=== PATIENT | female | born 1955 | race Caucasian/White ===

== ENCOUNTER 2019-10-24 09:30 | Inpatient (IN) | payer SELFPAY ==
[~2019-10-24] VITALS: Ht 160 cm; Wt 77.4 kg
[~2019-10-24 09:30] MED LIST: AMLO10TA8 PO; ASPI-496 PO; ASPI-650 PO; BACL-19 PO; CHOL200040 PO; DOCU-131 PO; GABA300C10 PO; LISI-167 PO; METH4TAB PO; MULTIVITAMIN; OXYC5TAB3 PO; STOOL SOFTENER
--- NOTE | 2019-10-24 10:01 | NUR ---
REPORT FROM MERON BRANNON RUST PERFORMED- 0 STRAIGHT CATH UA OBTAINED-SENT TO LAB
--- NOTE | 2019-10-24 10:07 | NUR ---
GENERALIZED WEAKNESS FOR TWO DAYS. FELL TWICE GETTING OUT OF BED TRYING TO GET INTO WHEELCHAIR INCLUDING THIS MORNING. STATES WEAK LEGS. ROOM AIR POX 87%, DEMINISHED TO BASES LIPS/TONGUE VERY DRY PROVIDER TO BEDSIDE
[2019-10-24 10:27] LABS: MICROSCOPIC AUTO
--- NOTE | 2019-10-24 10:40 | NUR ---
COVID SWAB SENT PASSED SWALLOW EXAM RE-CHECKED ROOM AIR SAT:87-88% ON ROOM AIR
[2019-10-24] MEDS ORDERED: CEFTRIAXONE PMX 1GM/50ML 50 ML ONE (10:59)
[2019-10-24] MEDS ORDERED: SODIUM CHLORIDE 0.9% 1,000ML IVBOLUS ONE (11:00)
[2019-10-24] MEDS ORDERED: CEFTRIAXONE PMX 1GM/50ML 50 ML IV ONE (11:00)
--- NOTE | 2019-10-24 11:00 | NUR ---
LAB AT BEDSIDE CULTURES OBTAINED MOVED TO HOSPITAL BED DIET ORDERED
[2019-10-24 11:10] LABS: BASOPHILS # (AUTO) 0.06 x10^3/uL (0-0.1); BASOPHILS % (AUTO) 1 % (0-1); EOSINOPHILS # (AUTO) 0.02 x10^3/uL (0-0.4); EOSINOPHILS % (AUTO) 0 % (1-7); LYMPHOCYTES # (AUTO) 1.23 x10^3/uL (1-3.4); LYMPHOCYTES % (AUTO) 14 % (22-44); MD NO; MEAN CORPUSCULAR HEMOGLOBIN 28.2 pg (27.0-34.8); MEAN CORPUSCULAR HGB CONC 32.3 g/dL (32.4-35.8); MEAN CORPUSCULAR VOLUME 87.2 fL (80-100); MEAN PLATELET VOLUME 10.4 fL (7.4-10.4); MONOCYTES # (AUTO) 0.51 x10^3/uL (0.2-0.8); MONOCYTES % (AUTO) 6 % (2-9); NEUTROPHILS # (AUTO) 7.19 x10^3/uL (1.8-6.8); NEUTROPHILS % (AUTO) 80 % (42-75); PLATELET COUNT 247 x10^3/uL (130-400); RED BLOOD COUNT 4.63 x10^6/uL (3.82-5.3); RED CELL DISTRIBUTION WIDTH 14.5 % (9.6-15.2)
--- NOTE | 2019-10-24 11:16 | NUR ---
MEDICATED PER EMAR- IV ABX REPORT TO COBY BRANNON
[2019-10-24 11:23] LABS: ALANINE AMINOTRANSFERASE 16 U/L (12-78); ALBUMIN 3.2 g/dL (3.4-5.0); ANION GAP 4 mmol/L (5-15); CALCIUM 10.2 mg/dL (8.5-10.1); CHLORIDE 111 mmol/L (98-107); CREATININE 2.65 mg/dL (0.55-1.02)
--- NOTE | 2019-10-24 11:24 | NUR ---
ABX INFUSION COMPLETE PERIWICK PLACED
[2019-10-24 11:27] LABS: ALKALINE PHOSPHATASE 109 U/L (45-117); BILIRUBIN,TOTAL 0.3 mg/dL (0.2-1.0); TOTAL PROTEIN 8.7 g/dL (6.4-8.2); TROPONIN I < 0.015 ng/mL (0.000-0.045)
--- NOTE | 2019-10-24 12:00 | NUR ---
Care of patient assumed.
[2019-10-24] MEDS: SODIUM CHLORIDE 0.9% 1,000 ML IV SCH (12:23)
[2019-10-24] MEDS ORDERED: hydrALAzine 20 MG/ML, 1ML IVPush PRN (12:30)
[2019-10-24] MEDS ORDERED: ONDANSETRON 2MG/ML, 2ML IVPush PRN (12:30)
--- NOTE | 2019-10-24 13:00 | NUR ---
Lunch tray to patient, patient aox4, call light with in reach.
--- NOTE | 2019-10-24 14:00 | NUR ---
Pt to ultrasound.
--- NOTE | 2019-10-24 15:24 | NUR ---
Patient sleeping / resting in hospital bed. Awaiting inpatient bed for admission. Vital signs stable. Will continue to monitor
[2019-10-24] MEDS ORDERED: OXYcodone/APAP 5/325MG TABLET ONE (16:05)
[2019-10-24] MEDS: OXYcodone/APAP 5/325MG TABLET PO PRN (16:10)
--- NOTE | 2019-10-24 16:30 | NUR ---
Dinner tray delivered. Pt medicated per mar for pain. call light with inreach.
[2019-10-24 21:40] VITALS: BP 114/65
[2019-10-24] MEDS: FAMOTIDINE 20 MG TABLET PO SCH (21:45)
[2019-10-25 02:37] VITALS: BP 126/74
[2019-10-25] MEDS ORDERED: SODIUM CHLORIDE 0.9% 1,000ML IVBOLUS ONE (05:30)
[2019-10-25 05:50] LABS: CHLORIDE 111 mmol/L (98-107)
[2019-10-25 05:56] LABS: BASOPHILS # (AUTO) 0.04 x10^3/uL (0-0.1); BASOPHILS % (AUTO) 1 % (0-1); EOSINOPHILS # (AUTO) 0.21 x10^3/uL (0-0.4); EOSINOPHILS % (AUTO) 3 % (1-7); LYMPHOCYTES # (AUTO) 1.68 x10^3/uL (1-3.4); LYMPHOCYTES % (AUTO) 24 % (22-44); MD NO; MEAN CORPUSCULAR HGB CONC 32.2 g/dL (32.4-35.8); MEAN PLATELET VOLUME 10.7 fL (7.4-10.4); MONOCYTES % (AUTO) 10 % (2-9); NEUTROPHILS # (AUTO) 4.48 x10^3/uL (1.8-6.8); NEUTROPHILS % (AUTO) 63 % (42-75); PLATELET COUNT 199 x10^3/uL (130-400); RED BLOOD COUNT 4.01 x10^6/uL (3.82-5.3); RED CELL DISTRIBUTION WIDTH 15.4 % (9.6-15.2)
[2019-10-25 06:15] LABS: ALANINE AMINOTRANSFERASE 17 U/L (12-78); ALBUMIN 2.7 g/dL (3.4-5.0); ALKALINE PHOSPHATASE 89 U/L (45-117); ANION GAP 8 mmol/L (5-15); BILIRUBIN,TOTAL 0.3 mg/dL (0.2-1.0); CALCIUM 9.1 mg/dL (8.5-10.1); CREATININE 2.41 mg/dL (0.55-1.02); TOTAL PROTEIN 7.4 g/dL (6.4-8.2)
[2019-10-25] MEDS: SODIUM CHLORIDE 0.9% 1,000 ML IV SCH ×2 (07:16→15:03)
[2019-10-25 08:00] VITALS: BP 87/56
[2019-10-25 08:10] LABS: C-REACTIVE PROTEIN, QUANT 8.1 mg/dL (0.02-0.49)
[2019-10-25] MEDS: FAMOTIDINE 20 MG TABLET PO SCH (08:25)
[2019-10-25] MEDS: SENNA/DOCUSATE TABLET PO SCH (08:25)
[2019-10-25] MEDS ORDERED: COSYNTROPIN 0.25 MG IV ONE (11:30)
[2019-10-25] MEDS: LIDODERM 5% PATCH TD SCH (12:09)
[2019-10-25] MEDS: CEFTRIAXONE PMX 2GM/50ML 50 ML IV SCH (13:27)
[2019-10-25 13:33] VITALS: BP 101/66
[2019-10-25 22:18] VITALS: BP 119/78
[2019-10-26 01:08] VITALS: BP 134/87
[2019-10-26 04:01] VITALS: BP 130/77
[2019-10-26] MEDS: OXYcodone/APAP 5/325MG TABLET PO PRN (04:08)
[2019-10-26] MEDS: SODIUM CHLORIDE 0.9% 1,000 ML IV SCH (05:40)
[2019-10-26 06:00] LABS: BASOPHILS # (AUTO) 0.07 x10^3/uL (0-0.1); BASOPHILS % (AUTO) 1 % (0-1); EOSINOPHILS % (AUTO) 5 % (1-7); LYMPHOCYTES # (AUTO) 1.77 x10^3/uL (1-3.4); LYMPHOCYTES % (AUTO) 31 % (22-44); MD NO; MEAN CORPUSCULAR HEMOGLOBIN 28.2 pg (27.0-34.8); MEAN CORPUSCULAR HGB CONC 32.4 g/dL (32.4-35.8); MEAN PLATELET VOLUME 10.4 fL (7.4-10.4); MONOCYTES % (AUTO) 9 % (2-9); NEUTROPHILS # (AUTO) 3.06 x10^3/uL (1.8-6.8); NEUTROPHILS % (AUTO) 54 % (42-75); PLATELET COUNT 199 x10^3/uL (130-400); RED BLOOD COUNT 3.74 x10^6/uL (3.82-5.3); RED CELL DISTRIBUTION WIDTH 14.4 % (9.6-15.2)
[2019-10-26 06:12] LABS: ANION GAP 4 mmol/L (5-15); CALCIUM 8.9 mg/dL (8.5-10.1); CHLORIDE 115 mmol/L (98-107); CREATININE 1.55 mg/dL (0.55-1.02)
[2019-10-26] MEDS: SENNA/DOCUSATE TABLET PO SCH (09:57)
[2019-10-26] MEDS: FAMOTIDINE 20 MG TABLET PO SCH (09:57)
[2019-10-26] MEDS: LIDODERM 5% PATCH TD SCH (10:01)
[2019-10-26 10:07] VITALS: BP 115/74
[2019-10-26] MEDS: CEFTRIAXONE PMX 2GM/50ML 50 ML IV SCH (13:30)
[2019-10-26 13:33] VITALS: BP 117/77
[2019-10-26 15:08] LABS: MEAN CORPUSCULAR HEMOGLOBIN 27.8 pg (27.0-34.8); MEAN CORPUSCULAR HGB CONC 31.8 g/dL (32.4-35.8); MEAN CORPUSCULAR VOLUME 87.4 fL (80-100); MEAN PLATELET VOLUME 10.1 fL (7.4-10.4); PLATELET COUNT 213 x10^3/uL (130-400); RED BLOOD COUNT 3.95 x10^6/uL (3.82-5.3); RED CELL DISTRIBUTION WIDTH 14.3 % (9.6-15.2)
[2019-10-26 15:36] LABS: BASOPHILS # (AUTO) 0.06 x10^3/uL (0-0.1); BASOPHILS % (AUTO) 1 % (0-1); EOSINOPHILS # (AUTO) 0.31 x10^3/uL (0-0.4); EOSINOPHILS % (AUTO) 6 % (1-7); LYMPHOCYTES # (AUTO) 1.78 x10^3/uL (1-3.4); LYMPHOCYTES % (AUTO) 32 % (22-44); MD SCAN; MONOCYTES % (AUTO) 9 % (2-9); NEUTROPHILS # (AUTO) 2.83 x10^3/uL (1.8-6.8); NEUTROPHILS % (AUTO) 52 % (42-75)
[2019-10-26] MEDS: HEPARIN 5,000 UNITS/ML, 1ML SQ SCH ×2 (17:34→22:50)
[2019-10-26 19:59] VITALS: BP 155/96
[2019-10-27 00:55] VITALS: BP 147/94
[2019-10-27 06:29] LABS: ANION GAP 8 mmol/L (5-15); CALCIUM 9.2 mg/dL (8.5-10.1); CHLORIDE 110 mmol/L (98-107)
[2019-10-27 06:31] LABS: CREATININE 1.44 mg/dL (0.55-1.02)
[2019-10-27 07:30] VITALS: BP 151/104
[2019-10-27 08:08] VITALS: BP 130/88
[2019-10-27] MEDS: SENNA/DOCUSATE TABLET PO SCH (08:19)
[2019-10-27] MEDS: FAMOTIDINE 20 MG TABLET PO SCH (08:19)
[2019-10-27] MEDS: HEPARIN 5,000 UNITS/ML, 1ML SQ SCH ×2 (08:20→16:31)
[2019-10-27] MEDS: LIDODERM 5% PATCH TD SCH (12:27)
[2019-10-27] MEDS: CEFTRIAXONE PMX 2GM/50ML 50 ML IV SCH (12:28)
[2019-10-27 14:57] VITALS: BP 133/86
[2019-10-27 18:53] VITALS: BP 122/87
[2019-10-27 22:31] LABS: OCCULT BLOOD NEGATIVE (NEGATIVE)
[2019-10-28] MEDS: HEPARIN 5,000 UNITS/ML, 1ML SQ SCH ×3 (00:29→16:39)
[2019-10-28] MEDS ORDERED: LIDODERM REMOVE PATCH NOTE XX ONE (00:30)
[2019-10-28 00:35] VITALS: BP 134/94
[2019-10-28] MEDS: SENNA/DOCUSATE TABLET PO SCH (08:56)
[2019-10-28] MEDS: FAMOTIDINE 20 MG TABLET PO SCH (08:56)
[2019-10-28 08:58] VITALS: BP 126/87
[2019-10-28] MEDS: LIDODERM 5% PATCH TD SCH (10:33)
[2019-10-28] MEDS: CEFTRIAXONE PMX 2GM/50ML 50 ML IV SCH (13:17)
[2019-10-28 15:28] VITALS: BP 150/106
[2019-10-28 19:08] VITALS: BP 136/90
[2019-10-29 02:25] VITALS: BP 127/92
[2019-10-29] MEDS: OXYcodone/APAP 5/325MG TABLET PO PRN ×2 (04:52→23:06)
[2019-10-29] MEDS: HEPARIN 5,000 UNITS/ML, 1ML SQ SCH ×3 (04:52→20:10)
[2019-10-29 07:11] VITALS: BP 111/81
[2019-10-29] MEDS: SENNA/DOCUSATE TABLET PO SCH (08:50)
[2019-10-29] MEDS: LIDODERM 5% PATCH TD SCH (08:51)
[2019-10-29] MEDS: CEFDINIR 300 MG CAPSULE PO SCH ×2 (08:53→20:10)
[2019-10-29] MEDS: FAMOTIDINE 20 MG TABLET PO SCH (08:53)
[2019-10-29 13:18] VITALS: BP 134/87
[2019-10-29 19:43] VITALS: BP 129/86
[2019-10-30 01:50] VITALS: BP 104/75
[2019-10-30] MEDS: HEPARIN 5,000 UNITS/ML, 1ML SQ SCH ×3 (06:00→21:34)
[2019-10-30 07:43] VITALS: BP 126/82
[2019-10-30] MEDS: CEFDINIR 300 MG CAPSULE PO SCH ×2 (08:35→21:34)
[2019-10-30] MEDS: LIDODERM 5% PATCH TD SCH (08:37)
[2019-10-30] MEDS: SENNA/DOCUSATE TABLET PO SCH (08:37)
[2019-10-30] MEDS: FAMOTIDINE 20 MG TABLET PO SCH (08:39)
[2019-10-30] MEDS ORDERED: CEFD300C37 PO (10:27)
[2019-10-30 13:44] VITALS: BP 118/87
[2019-10-30] MEDS: METHOCARBAMOL 500 MG TABLET PO PRN (15:14)
[2019-10-30 18:54] VITALS: BP 123/85
[2019-10-31 01:22] VITALS: BP 138/93
[2019-10-31] MEDS: HEPARIN 5,000 UNITS/ML, 1ML SQ SCH (06:30)
[2019-10-31 07:46] VITALS: BP 119/78
[2019-10-31] MEDS: ENOXAPARIN 40 MG/0.4 ML SQ SCH (09:11)
[2019-10-31] MEDS: FAMOTIDINE 20 MG TABLET PO SCH (09:12)
[2019-10-31] MEDS: SENNA/DOCUSATE TABLET PO SCH (09:12)
[2019-10-31] MEDS: LIDODERM 5% PATCH TD SCH (09:12)
[2019-10-31] MEDS: CEFDINIR 300 MG CAPSULE PO SCH ×2 (09:12→22:24)
[2019-10-31 09:23] LABS: HCT (SEDRATE) 39.9 % (34.6-47.8)
[2019-10-31 09:40] LABS: C-REACTIVE PROTEIN, QUANT 8.5 mg/dL (0.02-0.49)
[2019-10-31 13:26] VITALS: BP 111/71
[2019-10-31] MEDS ORDERED: OMNIPAQUE 350 MG/ML, 100ML BOTTLE ONE (16:12)
[2019-10-31 22:28] VITALS: BP 132/83
[2019-11-01 00:32] VITALS: BP 121/81
[2019-11-01 07:29] VITALS: BP 127/85
[2019-11-01] MEDS ORDERED: FAMOTIDINE 40 MG TABLET ONE (08:22)
[2019-11-01] MEDS: FAMOTIDINE 20 MG TABLET PO SCH ×2 (08:30→08:35)
[2019-11-01] MEDS: CEFDINIR 300 MG CAPSULE PO SCH ×2 (08:30→21:36)
[2019-11-01] MEDS: ENOXAPARIN 40 MG/0.4 ML SQ SCH (08:31)
[2019-11-01] MEDS: SENNA/DOCUSATE TABLET PO SCH ×2 (08:31→08:36)
[2019-11-01] MEDS: LIDODERM 5% PATCH TD SCH (08:32)
[2019-11-01] MEDS ORDERED: GADOTERATE 7.5 MMOL/15 ML SYR ONE (10:32)
[2019-11-01 13:54] VITALS: BP 122/86
[2019-11-01 19:13] VITALS: BP 138/92
[2019-11-01] MEDS: ACETAMINOPHEN 325 MG TABLET PO PRN (21:36)
[2019-11-02 00:57] VITALS: BP 113/79
[2019-11-02 08:36] VITALS: BP 133/85
[2019-11-02] MEDS: FAMOTIDINE 20 MG TABLET PO SCH (09:00)
[2019-11-02] MEDS ORDERED: FAMOTIDINE 40 MG TABLET ONE (09:09)
[2019-11-02] MEDS: ENOXAPARIN 40 MG/0.4 ML SQ SCH (09:17)
[2019-11-02] MEDS ORDERED: FAMOTIDINE 10 MG TAB PO SCH (09:17)
[2019-11-02] MEDS: CEFDINIR 300 MG CAPSULE PO SCH ×2 (09:18→21:31)
[2019-11-02] MEDS: SENNA/DOCUSATE TABLET PO SCH (09:18)
[2019-11-02] MEDS: LIDODERM 5% PATCH TD SCH (09:20)
[2019-11-02] MEDS: FAMOTIDINE 10 MG TAB PO SCH (09:32)
[2019-11-02 12:44] VITALS: BP 128/87
[2019-11-02 19:00] VITALS: BP 133/95
[2019-11-02] MEDS: ACETAMINOPHEN 325 MG TABLET PO PRN (21:31)
[2019-11-02] MEDS: METHOCARBAMOL 500 MG TABLET PO PRN (21:35)
[2019-11-03 01:48] VITALS: BP 123/88
[2019-11-03] MEDS: ACETAMINOPHEN 325 MG TABLET PO PRN ×2 (04:10→13:05)
[2019-11-03 06:42] VITALS: BP 110/80
[2019-11-03] MEDS: SENNA/DOCUSATE TABLET PO SCH (09:53)
[2019-11-03] MEDS: CEFDINIR 300 MG CAPSULE PO SCH ×2 (09:53→21:36)
[2019-11-03] MEDS: FAMOTIDINE 10 MG TAB PO SCH (09:53)
[2019-11-03] MEDS: LIDODERM 5% PATCH TD SCH (09:54)
[2019-11-03] MEDS: ENOXAPARIN 40 MG/0.4 ML SQ SCH (09:56)
[2019-11-03] MEDS ORDERED: POLYETHYLENE GLYCOL 17 GM PACKET NG ONE (13:00)
[2019-11-03 13:29] VITALS: BP 117/83
[2019-11-03 21:18] VITALS: BP 127/87
[2019-11-03] MEDS: MAGNESIUM HYDROXIDE 8%, 30ML UDC PO SCH (21:36)
[2019-11-03] MEDS: DOCUSATE 100 MG CAPSULE PO SCH (21:36)
[2019-11-03] MEDS ORDERED: POLYETHYLENE GLYCOL 17 GM PACKET ONE (22:21)
[2019-11-04 01:14] VITALS: BP 129/82
[2019-11-04 07:57] VITALS: BP 126/83
[2019-11-04] MEDS: DOCUSATE 100 MG CAPSULE PO SCH ×2 (09:00→20:19)
[2019-11-04] MEDS: FAMOTIDINE 10 MG TAB PO SCH (09:01)
[2019-11-04] MEDS: LIDODERM 5% PATCH TD SCH (09:01)
[2019-11-04] MEDS: ENOXAPARIN 40 MG/0.4 ML SQ SCH (09:02)
[2019-11-04] MEDS: ACETAMINOPHEN 325 MG TABLET PO PRN ×3 (09:02→19:44)
[2019-11-04 14:00] VITALS: BP 123/69
[2019-11-04 20:16] VITALS: BP 142/94
[2019-11-04] MEDS: MAGNESIUM HYDROXIDE 8%, 30ML UDC PO SCH (20:20)
[2019-11-05 01:28] VITALS: BP 119/82
[2019-11-05] MEDS: ACETAMINOPHEN 325 MG TABLET PO PRN ×2 (01:47→19:35)
[2019-11-05 06:03] LABS: CREATININE 1.74 mg/dL (0.55-1.02)
[2019-11-05 08:13] VITALS: BP 117/80
[2019-11-05] MEDS: LIDODERM 5% PATCH TD SCH (09:09)
[2019-11-05] MEDS: DOCUSATE 100 MG CAPSULE PO SCH ×2 (09:10→20:17)
[2019-11-05] MEDS: FAMOTIDINE 10 MG TAB PO SCH (09:10)
[2019-11-05] MEDS: ENOXAPARIN 40 MG/0.4 ML SQ SCH (09:11)
[2019-11-05 12:52] VITALS: BP 129/92
[2019-11-05 19:16] VITALS: BP 124/85
[2019-11-05] MEDS: MAGNESIUM HYDROXIDE 8%, 30ML UDC PO SCH (20:16)
[2019-11-06 00:52] VITALS: BP 121/85
[2019-11-06] MEDS: ACETAMINOPHEN 325 MG TABLET PO PRN ×3 (01:13→20:42)
[2019-11-06] MEDS: METHOCARBAMOL 500 MG TABLET PO PRN (01:13)
[2019-11-06 06:30] VITALS: BP 114/77
[2019-11-06] MEDS: ENOXAPARIN 30 MG/0.3 ML SQ SCH (08:49)
[2019-11-06] MEDS: DOCUSATE 100 MG CAPSULE PO SCH ×2 (08:49→20:43)
[2019-11-06] MEDS: LIDODERM 5% PATCH TD SCH (08:50)
[2019-11-06] MEDS: FAMOTIDINE 10 MG TAB PO SCH (09:00)
[2019-11-06 13:13] VITALS: BP 146/99
[2019-11-06] MEDS: CYCLOBENZAPRINE 10 MG TABLET PO SCH ×2 (16:06→20:42)
[2019-11-06 18:41] VITALS: BP 108/75
[2019-11-06] MEDS: MAGNESIUM HYDROXIDE 8%, 30ML UDC PO SCH (20:43)
[2019-11-07 00:54] VITALS: BP 106/72
[2019-11-07 05:59] LABS: HCT (SEDRATE) 38.9 % (34.6-47.8)
[2019-11-07 06:17] LABS: CHLORIDE 110 mmol/L (98-107)
[2019-11-07 06:30] LABS: ALANINE AMINOTRANSFERASE 31 U/L (12-78); ALBUMIN 3.3 g/dL (3.4-5.0); ALKALINE PHOSPHATASE 100 U/L (45-117); ANION GAP 9 mmol/L (5-15); BILIRUBIN,TOTAL 0.5 mg/dL (0.2-1.0); CREATININE 1.96 mg/dL (0.55-1.02); TOTAL PROTEIN 8.2 g/dL (6.4-8.2)
[2019-11-07 06:59] VITALS: BP 104/68
[2019-11-07] MEDS: FAMOTIDINE 20 MG TABLET PO SCH (07:59)
[2019-11-07] MEDS: CYCLOBENZAPRINE 10 MG TABLET PO SCH ×3 (07:59→21:11)
[2019-11-07] MEDS: DOCUSATE 100 MG CAPSULE PO SCH ×2 (07:59→21:11)
[2019-11-07] MEDS: LIDODERM 5% PATCH TD SCH (08:00)
[2019-11-07] MEDS: ENOXAPARIN 30 MG/0.3 ML SQ SCH (08:01)
[2019-11-07 12:13] VITALS: BP 96/65
[2019-11-07 13:04] VITALS: BP 130/82
[2019-11-07] MEDS: GABAPENTIN 100 MG CAPSULE PO SCH ×3 (13:07→21:11)
[2019-11-07 19:40] VITALS: BP 117/85
[2019-11-07] MEDS: MAGNESIUM HYDROXIDE 8%, 30ML UDC PO SCH (21:11)
[2019-11-08 01:27] VITALS: BP 100/71
[2019-11-08 06:22] VITALS: BP 106/75
[2019-11-08] MEDS: DOCUSATE 100 MG CAPSULE PO SCH ×2 (08:19→21:01)
[2019-11-08] MEDS: FAMOTIDINE 20 MG TABLET PO SCH (08:19)
[2019-11-08] MEDS: ENOXAPARIN 30 MG/0.3 ML SQ SCH (08:19)
[2019-11-08] MEDS: CYCLOBENZAPRINE 10 MG TABLET PO SCH ×3 (08:20→21:01)
[2019-11-08] MEDS: GABAPENTIN 100 MG CAPSULE PO SCH ×3 (08:20→21:01)
[2019-11-08] MEDS: LIDODERM 5% PATCH TD SCH (10:15)
[2019-11-08 13:59] VITALS: BP 130/92
[2019-11-08 19:37] VITALS: BP 111/7
[2019-11-08] MEDS: MAGNESIUM HYDROXIDE 8%, 30ML UDC PO SCH (21:01)
[2019-11-09 01:50] VITALS: BP 105/73
[2019-11-09 07:37] VITALS: BP 112/82
[2019-11-09] MEDS: DOCUSATE 100 MG CAPSULE PO SCH ×2 (08:08→22:00)
[2019-11-09] MEDS: GABAPENTIN 100 MG CAPSULE PO SCH ×3 (08:12→21:59)
[2019-11-09] MEDS: FAMOTIDINE 20 MG TABLET PO SCH (08:12)
[2019-11-09] MEDS: ENOXAPARIN 30 MG/0.3 ML SQ SCH (08:12)
[2019-11-09] MEDS: CYCLOBENZAPRINE 10 MG TABLET PO SCH ×3 (08:12→21:59)
[2019-11-09] MEDS: LIDODERM 5% PATCH TD SCH (09:33)
[2019-11-09 10:18] LABS: ALANINE AMINOTRANSFERASE 40 U/L (12-78); ALBUMIN 3.4 g/dL (3.4-5.0); ALKALINE PHOSPHATASE 116 U/L (45-117); BILIRUBIN,TOTAL 0.3 mg/dL (0.2-1.0); CALCIUM 10.8 mg/dL (8.5-10.1); CREATININE 2.24 mg/dL (0.55-1.02); TOTAL PROTEIN 8.6 g/dL (6.4-8.2)
[2019-11-09 10:21] LABS: ANION GAP 7 mmol/L (5-15); CHLORIDE 107 mmol/L (98-107)
[2019-11-09 13:10] VITALS: BP 118/80
--- NOTE | 2019-11-09 15:33 | NUR ---
Green sheet issued up to chair 3x/day LAQ 3x10 chair pushups with nursing sup 1x10 Addendum: 11/09/19 at 1534 by Chuck Pantoja PT Amended: Links added.
[2019-11-09 19:14] VITALS: BP 134/86
[2019-11-09] MEDS: MAGNESIUM HYDROXIDE 8%, 30ML UDC PO SCH (21:59)
[2019-11-10 01:44] VITALS: BP 101/74
[2019-11-10 07:48] VITALS: BP 121/86
[2019-11-10] MEDS: LACTATED RINGERS 1,000 ML IV SCH ×2 (09:48→16:17)
[2019-11-10] MEDS: GABAPENTIN 100 MG CAPSULE PO SCH ×3 (09:48→20:20)
[2019-11-10] MEDS: LIDODERM 5% PATCH TD SCH (09:49)
[2019-11-10] MEDS: ENOXAPARIN 30 MG/0.3 ML SQ SCH (09:49)
[2019-11-10] MEDS: DOCUSATE 100 MG CAPSULE PO SCH ×2 (09:49→20:20)
[2019-11-10] MEDS: FAMOTIDINE 20 MG TABLET PO SCH (09:49)
[2019-11-10] MEDS: CYCLOBENZAPRINE 10 MG TABLET PO SCH ×3 (09:56→20:20)
[2019-11-10 13:07] VITALS: BP 122/83
[2019-11-10 19:28] VITALS: BP 124/77
[2019-11-10] MEDS: MAGNESIUM HYDROXIDE 8%, 30ML UDC PO SCH (20:20)
[2019-11-11] MEDS: LACTATED RINGERS 1,000 ML IV SCH ×2 (00:27→11:30)
[2019-11-11 01:05] VITALS: BP 114/79
[2019-11-11 05:39] LABS: ALBUMIN 2.6 g/dL (3.4-5.0); ANION GAP 7 mmol/L (5-15); CALCIUM 9.2 mg/dL (8.5-10.1); CHLORIDE 111 mmol/L (98-107)
[2019-11-11 05:43] LABS: ALANINE AMINOTRANSFERASE 30 U/L (12-78); ALKALINE PHOSPHATASE 95 U/L (45-117); BILIRUBIN,TOTAL 0.2 mg/dL (0.2-1.0); CREATININE 1.63 mg/dL (0.55-1.02)
[2019-11-11 08:34] VITALS: BP 110/79
[2019-11-11] MEDS: ENOXAPARIN 30 MG/0.3 ML SQ SCH (09:19)
[2019-11-11] MEDS: FAMOTIDINE 20 MG TABLET PO SCH (09:21)
[2019-11-11] MEDS: CYCLOBENZAPRINE 10 MG TABLET PO SCH ×3 (09:21→20:59)
[2019-11-11] MEDS: DOCUSATE 100 MG CAPSULE PO SCH ×2 (09:21→20:59)
[2019-11-11] MEDS: GABAPENTIN 300 MG CAPSULE PO SCH ×3 (09:22→20:59)
[2019-11-11] MEDS: LIDODERM 5% PATCH TD SCH (09:22)
[2019-11-11 14:00] VITALS: BP 137/89
[2019-11-11 14:47] VITALS: BP 130/87
[2019-11-11 19:22] VITALS: BP 137/85
[2019-11-11] MEDS: MAGNESIUM HYDROXIDE 8%, 30ML UDC PO SCH (20:58)
[2019-11-12] MEDS: LACTATED RINGERS 1,000 ML IV SCH (00:26)
[2019-11-12 01:23] VITALS: BP 123/88
[2019-11-12 07:42] VITALS: BP 134/90
[2019-11-12 08:27] LABS: ALBUMIN 2.9 g/dL (3.4-5.0); ANION GAP 4 mmol/L (5-15); CHLORIDE 112 mmol/L (98-107)
[2019-11-12 08:30] LABS: ALANINE AMINOTRANSFERASE 27 U/L (12-78); ALKALINE PHOSPHATASE 97 U/L (45-117); BILIRUBIN,TOTAL 0.2 mg/dL (0.2-1.0); CREATININE 1.39 mg/dL (0.55-1.02); TOTAL PROTEIN 7.1 g/dL (6.4-8.2)
[2019-11-12] MEDS: ENOXAPARIN 30 MG/0.3 ML SQ SCH (10:02)
[2019-11-12] MEDS: FAMOTIDINE 20 MG TABLET PO SCH (10:03)
[2019-11-12] MEDS: GABAPENTIN 300 MG CAPSULE PO SCH ×3 (10:04→21:42)
[2019-11-12] MEDS: DOCUSATE 100 MG CAPSULE PO SCH ×2 (10:05→21:41)
[2019-11-12] MEDS: CYCLOBENZAPRINE 10 MG TABLET PO SCH ×3 (10:05→21:42)
[2019-11-12] MEDS: LIDODERM 5% PATCH TD SCH (10:06)
[2019-11-12 13:15] VITALS: BP 131/88
[2019-11-12 20:00] VITALS: BP 138/93
[2019-11-12] MEDS: MAGNESIUM HYDROXIDE 8%, 30ML UDC PO SCH (21:41)
[2019-11-13 00:15] VITALS: BP 142/89
[2019-11-13 07:31] VITALS: BP 121/82
[2019-11-13] MEDS: FAMOTIDINE 20 MG TABLET PO SCH (08:30)
[2019-11-13] MEDS: LIDODERM 5% PATCH TD SCH (08:30)
[2019-11-13] MEDS: ENOXAPARIN 40 MG/0.4 ML SQ SCH (08:30)
[2019-11-13] MEDS: GABAPENTIN 300 MG CAPSULE PO SCH ×3 (08:31→22:31)
[2019-11-13] MEDS: DOCUSATE 100 MG CAPSULE PO SCH ×2 (08:31→22:31)
[2019-11-13] MEDS: CYCLOBENZAPRINE 10 MG TABLET PO SCH ×3 (08:31→22:31)
[2019-11-13 13:07] VITALS: BP 124/85
[2019-11-13 19:51] VITALS: BP_SYST 91
[2019-11-13] MEDS: MAGNESIUM HYDROXIDE 8%, 30ML UDC PO SCH (22:32)
[2019-11-14 00:11] VITALS: BP 123/89
[2019-11-14] MEDS: LIDODERM 5% PATCH TD SCH (07:56)
[2019-11-14] MEDS: ENOXAPARIN 40 MG/0.4 ML SQ SCH (07:57)
[2019-11-14] MEDS: DOCUSATE 100 MG CAPSULE PO SCH ×2 (07:57→20:28)
[2019-11-14] MEDS: CYCLOBENZAPRINE 10 MG TABLET PO SCH ×3 (07:57→20:28)
[2019-11-14] MEDS: FAMOTIDINE 20 MG TABLET PO SCH (07:57)
[2019-11-14] MEDS: GABAPENTIN 300 MG CAPSULE PO SCH ×3 (07:57→20:28)
[2019-11-14 08:09] VITALS: BP 140/92
[2019-11-14 12:56] VITALS: BP 154/98
[2019-11-14 19:23] VITALS: BP 131/89
[2019-11-14] MEDS: MAGNESIUM HYDROXIDE 8%, 30ML UDC PO SCH (20:27)
[2019-11-15 00:29] VITALS: BP 134/98
[2019-11-15 07:32] VITALS: BP 130/80
[2019-11-15] MEDS: GABAPENTIN 300 MG CAPSULE PO SCH ×3 (08:07→20:00)
[2019-11-15] MEDS: DOCUSATE 100 MG CAPSULE PO SCH ×2 (08:07→20:00)
[2019-11-15] MEDS: CYCLOBENZAPRINE 10 MG TABLET PO SCH ×3 (08:07→20:00)
[2019-11-15] MEDS: FAMOTIDINE 20 MG TABLET PO SCH (08:07)
[2019-11-15] MEDS: ENOXAPARIN 40 MG/0.4 ML SQ SCH (10:48)
[2019-11-15 14:00] VITALS: BP 137/88
[2019-11-15 19:58] VITALS: BP 143/90
[2019-11-15] MEDS: MAGNESIUM HYDROXIDE 8%, 30ML UDC PO SCH (20:00)
[2019-11-15] MEDS: LIDODERM 5% PATCH TD SCH (20:02)
[2019-11-16 01:30] VITALS: BP 130/89
[2019-11-16 06:40] VITALS: BP 119/78
[2019-11-16] MEDS: DOCUSATE 100 MG CAPSULE PO SCH ×2 (08:32→21:01)
[2019-11-16] MEDS: CYCLOBENZAPRINE 10 MG TABLET PO SCH (08:32)
[2019-11-16] MEDS: GABAPENTIN 300 MG CAPSULE PO SCH ×3 (08:32→21:01)
[2019-11-16] MEDS: FAMOTIDINE 20 MG TABLET PO SCH (08:32)
[2019-11-16] MEDS: ENOXAPARIN 40 MG/0.4 ML SQ SCH (08:32)
--- NOTE | 2019-11-16 10:42 | NUR ---
11/16/19: green sheet not being filled out by nursing, only 11/09/19 completed, all other boxes empty- per pt, josé luis has been assisting pt up to the chair daily. educated to request nursing to complete green sheet when activity was completed. Also wrote on pt's dry erase board for nursing to complete green activity sheet. Will continue to monitor green sheet weekly. Addendum: 11/16/19 at 1053 by Parul Escamilla PT Amended: Links added.
[2019-11-16 12:49] VITALS: BP 128/89
[2019-11-16 14:28] LABS: CHOL/HDL RATIO 4.6; LDL/HDL RATIO 1.8 (0.5-3.0)
[2019-11-16 18:59] VITALS: BP 126/84
[2019-11-16] MEDS: LIDODERM 5% PATCH TD SCH (21:00)
[2019-11-16] MEDS: ATORVASTATIN 40 MG TABLET PO SCH (21:01)
[2019-11-16] MEDS: MAGNESIUM HYDROXIDE 8%, 30ML UDC PO SCH (21:01)
[2019-11-17 00:33] VITALS: BP 125/85
[2019-11-17 07:19] VITALS: BP 136/85
[2019-11-17] MEDS: FAMOTIDINE 20 MG TABLET PO SCH (09:01)
[2019-11-17] MEDS: ASPIRIN 81 MG TABLET CHEW PO SCH (09:01)
[2019-11-17] MEDS: GABAPENTIN 300 MG CAPSULE PO SCH (09:01)
[2019-11-17] MEDS: DOCUSATE 100 MG CAPSULE PO SCH ×2 (09:01→20:01)
[2019-11-17] MEDS: ENOXAPARIN 40 MG/0.4 ML SQ SCH (09:03)
[2019-11-17 13:00] VITALS: BP 125/80
[2019-11-17 19:45] VITALS: BP 123/84
[2019-11-17] MEDS: LIDODERM 5% PATCH TD SCH (20:01)
[2019-11-17] MEDS: MAGNESIUM HYDROXIDE 8%, 30ML UDC PO SCH (20:01)
[2019-11-17] MEDS: ATORVASTATIN 40 MG TABLET PO SCH (20:01)
[2019-11-17] MEDS: GABAPENTIN 300 MG CAPSULE PO PRN (20:04)
[2019-11-18 00:26] VITALS: BP 135/83
[2019-11-18] MEDS: CYCLOBENZAPRINE 10 MG TABLET PO PRN ×3 (06:05→20:15)
[2019-11-18 06:06] LABS: HCT (SEDRATE) 36.1 % (34.6-47.8)
[2019-11-18 06:12] LABS: ALANINE AMINOTRANSFERASE 21 U/L (12-78); ALBUMIN 2.7 g/dL (3.4-5.0); ANION GAP 8 mmol/L (5-15); CALCIUM 9.4 mg/dL (8.5-10.1); CHLORIDE 106 mmol/L (98-107)
[2019-11-18 06:21] LABS: ALKALINE PHOSPHATASE 107 U/L (45-117); BILIRUBIN,TOTAL 0.4 mg/dL (0.2-1.0); TOTAL PROTEIN 7.5 g/dL (6.4-8.2)
[2019-11-18 06:56] VITALS: BP 146/90
[2019-11-18] MEDS: GABAPENTIN 300 MG CAPSULE PO PRN ×2 (10:39→16:07)
[2019-11-18] MEDS: ENOXAPARIN 40 MG/0.4 ML SQ SCH (10:39)
[2019-11-18] MEDS: FAMOTIDINE 20 MG TABLET PO SCH (10:39)
[2019-11-18] MEDS: DOCUSATE 100 MG CAPSULE PO SCH ×2 (10:39→20:01)
[2019-11-18] MEDS: ASPIRIN 81 MG TABLET CHEW PO SCH (10:39)
[2019-11-18 13:15] VITALS: BP 147/101
[2019-11-18 19:57] VITALS: BP 140/90
[2019-11-18] MEDS: MAGNESIUM HYDROXIDE 8%, 30ML UDC PO SCH (20:01)
[2019-11-18] MEDS: ATORVASTATIN 40 MG TABLET PO SCH (20:01)
[2019-11-18] MEDS: LIDODERM 5% PATCH TD SCH (20:01)
[2019-11-19 02:00] VITALS: BP 142/87
[2019-11-19 08:00] VITALS: BP 143/90
[2019-11-19] MEDS: DOCUSATE 100 MG CAPSULE PO SCH ×2 (11:01→20:33)
[2019-11-19] MEDS: ASPIRIN 81 MG TABLET CHEW PO SCH (11:02)
[2019-11-19] MEDS: FAMOTIDINE 20 MG TABLET PO SCH (11:02)
[2019-11-19] MEDS: ENOXAPARIN 40 MG/0.4 ML SQ SCH (11:04)
[2019-11-19 15:00] VITALS: BP 145/96
[2019-11-19] MEDS ORDERED: methylPREDNISolone SOD SUCC 125 MG/2 ML IVPush SCH (17:00)
[2019-11-19] MEDS: LIDODERM 5% PATCH TD SCH (20:00)
[2019-11-19] MEDS: GABAPENTIN 300 MG CAPSULE PO PRN (20:33)
[2019-11-19] MEDS: MAGNESIUM HYDROXIDE 8%, 30ML UDC PO SCH (20:33)
[2019-11-19] MEDS: CYCLOBENZAPRINE 10 MG TABLET PO PRN (20:33)
[2019-11-19] MEDS: ATORVASTATIN 40 MG TABLET PO SCH (20:33)
[2019-11-19 21:21] VITALS: BP 152/87
[2019-11-20 00:04] VITALS: BP 143/92
[2019-11-20 05:49] LABS: BASOPHILS # (AUTO) 0.02 x10^3/uL (0-0.1); BASOPHILS % (AUTO) 0 % (0-1); EOSINOPHILS % (AUTO) 0 % (1-7); LYMPHOCYTES # (AUTO) 0.94 x10^3/uL (1-3.4); LYMPHOCYTES % (AUTO) 11 % (22-44); MD NO; MEAN CORPUSCULAR HEMOGLOBIN 27.6 pg (27.0-34.8); MEAN CORPUSCULAR VOLUME 86.1 fL (80-100); MEAN PLATELET VOLUME 10.3 fL (7.4-10.4); MONOCYTES % (AUTO) 1 % (2-9); NEUTROPHILS # (AUTO) 7.33 x10^3/uL (1.8-6.8); NEUTROPHILS % (AUTO) 87 % (42-75); PLATELET COUNT 290 x10^3/uL (130-400); RED BLOOD COUNT 4.13 x10^6/uL (3.82-5.3); RED CELL DISTRIBUTION WIDTH 15.2 % (9.6-15.2)
[2019-11-20 05:53] LABS: CHLORIDE 107 mmol/L (98-107)
[2019-11-20 06:00] LABS: ALANINE AMINOTRANSFERASE 21 U/L (12-78); ALBUMIN 2.8 g/dL (3.4-5.0); ALKALINE PHOSPHATASE 121 U/L (45-117); ANION GAP 7 mmol/L (5-15); BILIRUBIN,TOTAL 0.6 mg/dL (0.2-1.0); CALCIUM 10.2 mg/dL (8.5-10.1); CREATININE 1.62 mg/dL (0.55-1.02); TOTAL PROTEIN 7.9 g/dL (6.4-8.2)
[2019-11-20 06:51] VITALS: BP 139/83
[2019-11-20] MEDS: ASPIRIN 81 MG TABLET CHEW PO SCH (08:23)
[2019-11-20] MEDS: DOCUSATE 100 MG CAPSULE PO SCH ×2 (08:23→21:17)
[2019-11-20] MEDS: FAMOTIDINE 20 MG TABLET PO SCH (08:24)
[2019-11-20] MEDS: ENOXAPARIN 40 MG/0.4 ML SQ SCH (10:47)
[2019-11-20 12:23] VITALS: BP 126/86
[2019-11-20 19:09] VITALS: BP 120/82
[2019-11-20] MEDS: ATORVASTATIN 40 MG TABLET PO SCH (21:17)
[2019-11-20] MEDS: MAGNESIUM HYDROXIDE 8%, 30ML UDC PO SCH (21:17)
[2019-11-20] MEDS: LIDODERM 5% PATCH TD SCH (21:20)
[2019-11-21 01:00] VITALS: BP 115/69
[2019-11-21 04:05] LABS: ALBUMIN 2.6 g/dL (3.4-5.0); ANION GAP 9 mmol/L (5-15); CALCIUM 9.2 mg/dL (8.5-10.1); CHLORIDE 107 mmol/L (98-107)
[2019-11-21 04:06] LABS: BASOPHILS # (AUTO) 0.05 x10^3/uL (0-0.1); BASOPHILS % (AUTO) 0 % (0-1); EOSINOPHILS % (AUTO) 0 % (1-7); LYMPHOCYTES % (AUTO) 19 % (22-44); MD NO; MEAN CORPUSCULAR HGB CONC 32.2 g/dL (32.4-35.8); MEAN CORPUSCULAR VOLUME 86.7 fL (80-100); MEAN PLATELET VOLUME 10.6 fL (7.4-10.4); MONOCYTES # (AUTO) 0.87 x10^3/uL (0.2-0.8); MONOCYTES % (AUTO) 7 % (2-9); NEUTROPHILS # (AUTO) 9.03 x10^3/uL (1.8-6.8); NEUTROPHILS % (AUTO) 73 % (42-75); PLATELET COUNT 287 x10^3/uL (130-400); RED BLOOD COUNT 3.95 x10^6/uL (3.82-5.3); RED CELL DISTRIBUTION WIDTH 15.4 % (9.6-15.2)
[2019-11-21 04:09] LABS: ALANINE AMINOTRANSFERASE 28 U/L (12-78); ALKALINE PHOSPHATASE 96 U/L (45-117); BILIRUBIN,TOTAL 0.3 mg/dL (0.2-1.0); CREATININE 1.62 mg/dL (0.55-1.02); TOTAL PROTEIN 7.7 g/dL (6.4-8.2)
[2019-11-21 07:25] VITALS: BP 146/96
[2019-11-21] MEDS: DOCUSATE 100 MG CAPSULE PO SCH ×3 (09:00→20:58)
[2019-11-21] MEDS: ASPIRIN 81 MG TABLET CHEW PO SCH (09:16)
[2019-11-21] MEDS: FAMOTIDINE 20 MG TABLET PO SCH (09:17)
[2019-11-21] MEDS: ENOXAPARIN 30 MG/0.3 ML SQ SCH (09:17)
[2019-11-21 13:19] VITALS: BP 150/94
[2019-11-21] MEDS: ATORVASTATIN 40 MG TABLET PO SCH (20:58)
[2019-11-21] MEDS: MAGNESIUM HYDROXIDE 8%, 30ML UDC PO SCH (20:58)
[2019-11-21] MEDS: LIDODERM 5% PATCH TD SCH (20:58)
[2019-11-21 21:05] VITALS: BP 144/79
[2019-11-22 00:30] VITALS: BP 145/90
[2019-11-22 06:54] VITALS: BP 131/89
[2019-11-22] MEDS: DOCUSATE 100 MG CAPSULE PO SCH (09:09)
[2019-11-22] MEDS: FAMOTIDINE 20 MG TABLET PO SCH (09:09)
[2019-11-22] MEDS: ENOXAPARIN 30 MG/0.3 ML SQ SCH (09:09)
[2019-11-22] MEDS: ASPIRIN 81 MG TABLET CHEW PO SCH (09:09)
[2019-11-22] MEDS ORDERED: PRED20TA PO (11:51)
[2019-11-22] MEDS ORDERED: PRED10TA PO (11:51)
[2019-11-22] MEDS ORDERED: PRED5TAB PO (11:51)
[2019-11-22] MEDS ORDERED: TRAM50TA2 PO (11:51)
[2019-11-22] MEDS ORDERED: LIDO700A20 TD (11:51)
[2019-11-22] MEDS ORDERED: FAMO20TA7 PO (11:51)
[2019-11-22] MEDS ORDERED: ATOR40TA78 PO (11:51)
[2019-11-22 13:59] VITALS: BP 140/79
== END 2019-11-22 16:16 | disposition home or self-care (01) | DRG 871 ==
LOC: ED 10:29 → EDIP 12:23 → ICU 18:35 → 4NW 10-26 18:37 → 3N 10-27 21:42 → 4NW 10-27 21:55 → 3N 10-28 15:57 → DCLOUNGE 11-22 16:05
PROVIDERS: ADMIT Internal Medicine; ATTEND Hospitalist
PROC: 0T9B70Z Drainage of Bladder with Drainage Device, Via Natural or Artificial Opening (ICD-10-PCS; principal; 2019-10-24)
DX: A41.9 Sepsis, unspecified organism (principal); G92 Toxic encephalopathy; N17.0 Acute kidney failure with tubular necrosis; R65.21 Severe sepsis with septic shock; E46 Unspecified protein-calorie malnutrition; E87.2 Acidosis; N18.4 Chronic kidney disease, stage 4 (severe); D63.8 Anemia in other chronic diseases classified elsewhere; E86.0 Dehydration; F01.50 Vascular dementia, unspecified severity, without behavioral disturbance, psychotic disturbance, mood disturbance, and anxiety; G89.29 Other chronic pain; I12.9 Hypertensive chronic kidney disease with stage 1 through stage 4 chronic kidney disease, or unspecified chronic kidney disease; K59.00 Constipation, unspecified; M48.061 Spinal stenosis, lumbar region without neurogenic claudication; M51.36 Other intervertebral disc degeneration, lumbar region; N30.90 Cystitis, unspecified without hematuria; I95.9 Hypotension, unspecified; M48.07 Spinal stenosis, lumbosacral region; E78.5 Hyperlipidemia, unspecified; R79.1 Abnormal coagulation profile; R53.81 Other malaise; Z20.828 Contact with and (suspected) exposure to other viral communicable diseases; Z99.3 Dependence on wheelchair; Z86.73 Personal history of transient ischemic attack (TIA), and cerebral infarction without residual deficits; Z79.82 Long term (current) use of aspirin; Z74.01 Bed confinement status; W18.30XA Fall on same level, unspecified, initial encounter; Y93.89 Activity, other specified; Y92.89 Other specified places as the place of occurrence of the external cause; Y99.0 Civilian activity done for income or pay
CPT/HCPCS: 36415; 71045; 72072; 72110; 72132; 72158; 80048; 80053; 80061; 81001; 82272; 82306; 82533; 82565; 82607; 82728; 83540; 83550; 83605; 83615; 83735; 84100; 84145; 84443; 84484; 85025; 85379; 85651; 86140; 87040; 87081; 87635; 93005; 93970; 93975; 96365; G0378; J0696; J1644; J1650; Q9967; A9575; J0834; J7030; J7120; J7512